=== PATIENT | female | born 1970 | race Caucasian/White ===

== ENCOUNTER → 2023-07-02 09:02 | Outpatient (REF) | payer OTHER, SELFPAY | LOC: HWRAD 09:02 | PROVIDERS: ATTENDING PHYSICIAN Physician Assistant Medical | DX: Z12.31 Encounter for screening mammogram for malignant neoplasm of breast (principal); R10.13 Epigastric pain | CPT/HCPCS: 76700; 77063; 77067 ==

== ENCOUNTER → 2023-12-01 09:51 | Outpatient (REF) | payer OTHER, SELFPAY | LOC: MRI 3T 09:51 | PROVIDERS: ATTENDING PHYSICIAN Anesthesiology Pain Medicine; FAMILY PHYSICIAN Physician Assistant Medical | DX: M54.12 Radiculopathy, cervical region (principal); M54.16 Radiculopathy, lumbar region | CPT/HCPCS: 72141; 72148 ==

== ENCOUNTER → 2023-12-02 17:54 | Outpatient (REF) | payer OTHER, SELFPAY | LOC: PAVMRI 17:54 | PROVIDERS: ATTENDING PHYSICIAN Orthopaedic Surgery; FAMILY PHYSICIAN Physician Assistant Medical | DX: S83.522A Sprain of posterior cruciate ligament of left knee, initial encounter (principal); M25.562 Pain in left knee | CPT/HCPCS: 73721 ==

== ENCOUNTER → 2024-01-04 10:01 | Outpatient (REF) | payer OTHER, SELFPAY | LOC: MRI 3T 10:01 | PROVIDERS: ATTENDING PHYSICIAN Orthopaedic Surgery; FAMILY PHYSICIAN Physician Assistant Medical | DX: M25.511 Pain in right shoulder (principal) | CPT/HCPCS: 73221 ==

== ENCOUNTER → 2024-02-17 18:12 | Outpatient (REF) | payer OTHER, SELFPAY | LOC: PAVMRI 18:12 | PROVIDERS: ATTENDING PHYSICIAN Orthopaedic Surgery; FAMILY PHYSICIAN Physician Assistant Medical | DX: M25.521 Pain in right elbow (principal) | CPT/HCPCS: 73221 ==

== ENCOUNTER 2024-04-17 15:57 | Emergency (ER) | payer OTHER, SELFPAY ==
[2024-04-17 16:15] VITALS: BP 132/77
--- NOTE | 2024-04-17 16:23 | ED.GENMED ---
ED Provider Triage
-
Patient seen by provider in Triage?: Seen in Triage
Attestation: A medical screening examination has been initiated by a qualified medical provider. Based on the assessment performed at this time, it has been determined that an emergent medical condition may exist and the patient has been informed
that further medical evaluation and possible additional diagnostic testing may be needed.
HPI: 53-year-old female here today for constipation. Last BM was 04/05. Took [place] oil 6 days ago, Miralx every a.m. for past 5 days with no results.
She does feel hungry but doesn't want to ear, mildly nauseous.
With purposeful 15 pound weight loss over the past 6 months on Trirzepitide
GENERAL: Alert , in no apparent distress
EYE: No visual abnormalities.
NECK: Trachea midline
ENT: No visible abnormalities.
LUNGS: No acute respiratory distress
NEUROLOGICAL: Alert and oriented
SKIN: Skin intact. No visible changes.
MUSCULOSKELETAL: Moving extremities normally
PSYCH: Normal and appropriate interaction.
This is a medical evaluation conducted in person to initiate diagnostic evaluation and provide initial therapeutics. Please see further documentation by the treating clinician.
History of Present Illness
General
Chief Complaint: Bowel Problem
Source: patient
Exam Limitations: none
Time Seen by Provider: 04/17/24 19:34
Nursing documentation reviewed up to this point in time: agreed with
History of Present Illness
History of Present Illness:
53-year-old female here today for constipation. Last BM was 04/05. Took [place] oil 6 days ago, Miralx every a.m. for past 5 days with no results.
She does feel hungry but doesn't want to ear, mildly nauseous. Denies fever/chills. Denies nausea/vomiting. Feels 'a little bloated' denies abdominal pain
With purposeful 15 pound weight loss over the past 6 months on 'Trirzepitide'
Past History
Past History
ED Past Medical History: None
ED Past Surgical History: Gynecological and Other
Social History
Tobacco: Smoker (Social)
Alcohol: Occasional
Personal:
Living: with family
Review of Systems
Review of Systems
Allergies reviewed?: Yes
All Other Systems: ROS reviewed and negative except as documented in HPI and ROS
Constitutional: Denies fever
Respiratory: Denies trouble breathing
Cardiac: Denies chest pain
ABD/GI: Reports abdominal pain (mild) and constipated; Denies nausea, vomiting or diarrhea
: Denies dysuria or difficulty voiding
Skin: Reports no symptoms
Neurological: Reports no symptoms
Phy Exam
Physical Exam
Physical Exam:
GENERAL: No acute distress. A&Ox3.
CONSTITUTIONAL: Afebrile.
EYES: Clear, conjunctivae normal
ENMT: moist mucus membranes, Pharynx nl
RESPIRATORY: Regular respirations, nonlabored, lungs clear.
CARDIOVASCULAR: Regular rate and rhythm, no murmurs, no rubs.
GI: Soft, mild general tenderness to palpation , normal BS
MUSCULOSKELETAL: Moves with ease. Well perfused.
SKIN: Warm, dry, pink
PSYCH: Normal mood and affect. Well kept, interactive and appropriate
NEUROLOGIC: Awake, alert and oriented. No focal neurological deficits
Course
Orders/Labs/Results
Orders:
Orders
04/17/24 16:30
CT Abd/pel W Iv And Oral Contr Urgent
Comment:
Reason For Exam: No BM for 2 weeks, abd pain.
Iohexol [Omnipaque] See Protocol PO NOW STA
04/17/24 16:39
Complete Blood Count/With Diff Urgent
Comprehensive Metabolic Panel Urgent
Lipase Urgent
04/17/24 20:13
Magnesium Citrate [Citroma] 300 ml PO ONCE ONE
Abnormal Lab Results
04/17/24
16:39
MCH 32.8 H pg
(27.0-31.0)
04/17/24 16:39
04/17/24 16:39
Vital Signs
Initial and Last Documented VS:
Initial Vital Signs
Temp Pulse Resp BP Pulse Ox
98.2 F 86 16 132/77 98
04/17/24 16:15 04/17/24 16:15 04/17/24 16:15 04/17/24 16:15 04/17/24 16:15
Last Documented Vital Signs
Temp Pulse Resp BP Pulse Ox
98.2 F 86 18 125/88 98
04/17/24 16:15 04/17/24 20:23 04/17/24 20:23 04/17/24 20:23 04/17/24 20:23
MDM/Problems Addressed
Differential Diagnosis Includes:
Constipation, bowel obstruction
MDM/Problems Addressed:
53-year-old female here today for constipation. Last BM was 04/05. Took [place] 6 days ago, Miralx every a.m. for past 5 days with no results.
She does feel hungry but doesn't want to ear, mildly nauseous. Denies fever/chills. Denies nausea/vomiting, mild abdominal discomfort/bloating
With purposeful 15 pound weight loss over the past 6 months on Trirzepitide
Afebrile, NAD
Abd soft, normal BS
CBC normal
MANAGEMENT MANAGER normal
Lipase normal
8:00 PM:
CT abdomen pelvis with p.o. and IV contrast radiology report read: IMPRESSION:
Constipation with moderate colonic fecal burden. No evidence of bowel obstruction. No bowel wall thickening.
No acute inflammatory process within the abdomen or pelvis.
No obstructive uropathy.
Patient remains in no distress, given a copy of her CAT scan report
Vital mag citrate sent home with her
Final diagnosis: Constipation
*Critical Care Note
Total Time (30-74mins, 75-104mins- exclusive of procedures): Not Applicable
ED Attending Note
-
Portions of this chart may have been created with voice recognition software.� Occasional wrong word or��sound alike� substitutions may have occurred due to the inherent limitations of voice recognition software.
Discharge Plan
Departure
Patient Disposition: Home (Routine Discharge)
Date of Disposition: 04/17/24
Time of Disposition: 20:13
Patient with high blood pressure during this ER visit?: No
Condition: Good
Discharge Problem:
Constipation
Instructions: Constipation, Adult (DC)
Prescriptions:
No Action
doxycycline hyclate 100 MG capsule
100 mg PO BID Qty: 20 0RF
diazepam [Valium] 5 mg tablet
5 mg PO TID PRN (Reason: muscle spasm) Qty: 10 0RF
Referrals:
Shi Olmedo PA-C [Family Provider] - As needed
Activity Restrictions/Additional Instructions:
As we discussed, the CAT scan of your abdomen shows no sign of obstruction or any other worrisome signs.
You are moderately constipated.
Take the entire bottle of magnesium citrate when you get home and hopefully you will move your bowels within the neck 12 to 24 hours.
Drink plenty of water/fluids
See your doctor in 1 week if you are not moving her bowels normally by then
Return here immediately for abdominal pain, vomiting, fever or feeling sicker in any way.
Interventions
Interventions:
*Risk Screen - Suicide Last Done: 04/17/24 16:15
*General Assessment Last Done: 04/17/24 20:22
*Neglect/Abuse Screening Last Done: 04/17/24 16:15
*Nursing Disposition Last Done: 04/17/24 20:24
RM-Ptpnmb-Wrbiojpcul Assessment Last Done: 04/17/24 20:22
Discharge Date and Time
Discharge Date/Time: 04/17/24 20:24
Print Language: ROMANIAN
[2024-04-17] MEDS: OMNIPAQUE 50 ML PO (16:35)
[2024-04-17 16:48] LABS: % Basophils 0.9 % (0-2); % Eosinophils 0.9 % (0-6); % Immature Granulocytes 0.2 % (0-0.5); % Lymphocytes 47.2 % (20.5-51.1); % Monocytes 7.1 % (1.7-9.3); % Neutrophils 43.7 % (42.2-75.2); Absolute Basophils 0.1 10^3/uL (0-0.2); Absolute Eosinophils 0.1 10^3/uL (0-0.7); Absolute Lymphocytes 2.6 10^3/uL (1.2-3.4); Absolute Monocytes 0.4 10^3/uL (0.1-0.6); Absolute Neutrophils 2.4 10^3/uL (1.4-6.5); Hematocrit 41.9 % (37.0-47.0); Hemoglobin 14.5 g/dL (12.0-16.0); Mean Corp Hgb Conc. 34.6 g/dL (33.0-37.0); Mean Corpuscular Hgb 32.8 pg (27.0-31.0); Mean Corpuscular Volume 94.8 fL (81.0-99.0); Mean Platelet Volume 8.6 fL (7.4-10.4); Nucleated Red Blood Cells % 0 %; Platelet Count 256 10^3/uL (130-400); Red Blood Cell Count 4.42 10^6/uL (4.20-5.40); Red Cell Dist. Width 12.2 % (11.5-14.5); White Blood Cell Count 5.5 10^3/uL (4.8-10.8)
[2024-04-17 17:25] LABS: ALT (SGPT) 17 U/L (0-35); AST (SGOT) 25 U/L (14-36); Albumin 4.6 g/dl (3.5-5.0); Alkaline Phosphatase 76 U/L (38-126); Blood Urea Nitrogen 16 mg/dl (7-17); Calcium 9.5 mg/dl (8.4-10.2); Carbon Dioxide 26 mmol/L (22-30); Chloride 104 mmol/L (98-107); Glucose 85 mg/dl (70-99); Potassium 4.5 mmol/L (3.5-5.1); Sodium 140 mmol/L (135-145); Total Bilirubin 0.7 mg/dl (0.2-1.3); Total Protein 7.5 g/dl (6.3-8.2); eGFR > 60.00
[2024-04-17 18:08] LABS: Lipase 249 U/L (23-300)
[2024-04-17] MEDS: CITROMA 300 ML PO (20:21)
[2024-04-17 20:23] VITALS: BP 125/88
== END 2024-04-17 20:24 | disposition home or self-care (01) ==
LOC: EMR 15:57
PROVIDERS: Registered Nurse; EMERGENCY PHYSICIAN Student in an Organized Health Care Education/Training Program; FAMILY PHYSICIAN Physician Assistant Medical
DX: K59.00 Constipation, unspecified (principal); F17.200 Nicotine dependence, unspecified, uncomplicated
CPT/HCPCS: 99284; 74177; 80053; 83690; 85025; Q9967

== ENCOUNTER → 2024-08-01 08:12 | Outpatient (REF) | payer OTHER, SELFPAY | LOC: MRI 08:12 | PROVIDERS: ATTENDING PHYSICIAN Orthopaedic Surgery; FAMILY PHYSICIAN Physician Assistant Medical | DX: M25.552 Pain in left hip (principal) | CPT/HCPCS: 73721 ==

== ENCOUNTER 2024-11-26 11:25 | Outpatient (RCR) | payer OTHER, SELFPAY | END 2024-12-09 11:02 | disposition home or self-care (01) | LOC: RPT 11:25 | PROVIDERS: ATTENDING PHYSICIAN Orthopaedic Surgery; PRIMARYCARE PHYSICIAN Physician Assistant Medical | DX: M75.101 Unspecified rotator cuff tear or rupture of right shoulder, not specified as traumatic (principal); Z73.6 Limitation of activities due to disability | CPT/HCPCS: 97110; 97112; 97163 ==

== ENCOUNTER → 2025-01-29 07:59 | Outpatient (REF) | payer OTHER, SELFPAY | LOC: EMG 07:59 | PROVIDERS: ATTENDING PHYSICIAN Physician Assistant Surgical; FAMILY PHYSICIAN Physician Assistant Medical | DX: G90.522 Complex regional pain syndrome I of left lower limb (principal); R20.0 Anesthesia of skin | CPT/HCPCS: 95886; 95908 ==

== ENCOUNTER → 2025-03-08 14:38 | Outpatient (REF) | payer OTHER, SELFPAY | LOC: PAVMRI 14:38 | PROVIDERS: ATTENDING PHYSICIAN Physician Assistant Surgical; FAMILY PHYSICIAN Physician Assistant Medical | DX: M54.16 Radiculopathy, lumbar region (principal) | CPT/HCPCS: 72148 ==